=== PATIENT | male | born 1990 | race Caucasian/White ===

== ENCOUNTER 2019-01-08 19:29 | Inpatient (IN) | payer MEDICAID ==
[~2019-01-08] VITALS: Ht 165.1 cm; Wt 68.5 kg
[2019-01-08 19:40] VITALS: BP 110/77
--- NOTE | 2019-01-08 19:40 | NUR ---
TO BED # 06 VIA WHEELCHAIR
--- NOTE | 2019-01-08 19:52 | NUR ---
DR. PHILLIPS BEDSIDE EVALUATING PT
--- NOTE | 2019-01-08 19:54 | NUR ---
PT PRESENTS TO THE ED WITH SUDDEN ONSET OF ABD PAIN. PER PATIENT PAIN STARTED TODAY. PATIENT REPORTS HAVING 7 EPISODES OF EMESIS PRIOR TO COMING TO THE ED. PATIENT DENIES DIARRHEA. BOWEL SOUNDS PRESENT. PATIENT REPORTS HAVING HX OF GASTRITIS. DENIES ANY OTHER MEDICAL HX. VSS WITHIN NORMAL LIMITS AT THIS TIME. BED LOWERED WITH SIDE RAILS UP. FAMILY MEMBER AT BEDSIDE
[2019-01-08] MEDS ORDERED: MORPHINE SULFATE 4 MG/ML SYR IVP ONE (20:05)
[2019-01-08] MEDS ORDERED: ONDANSETRON 4 MG/2 ML VIAL IVP ONE (20:05)
[2019-01-08] MEDS ORDERED: NACL 0.9% 1,000 ML IV ONE (20:05)
[2019-01-08 20:26] LABS: HEMATOCRIT 49.9 % (36-52); HEMOGLOBIN 16.9 g/dL (12.0-18.0); MEAN CORPUSCULAR HEMOGLOBIN 30 pg (27-31); MEAN CORPUSCULAR HGB CONC 34 g/dL (33-37); MEAN CORPUSCULAR VOLUME 89.8 fL (80-94); PLATELET COUNT (AUTO) 237 K/uL (140-450); RED BLOOD CELL COUNT(AUTO) 5.56 MIL/uL (4.20-6.10); RED CELL DISTRIBUTION WIDTH 13.6 % (11.6-13.7); WHITE BLOOD COUNT (AUTO) 15.3 K/uL (4.8-10.8)
--- NOTE | 2019-01-08 20:32 | NUR ---
PT TAKEN TO CT
[2019-01-08 20:36] LABS: ANION GAP 13.1 (8-16); CARBON DIOXIDE 30.6 mmol/L (21-32); CREATININE 1.1 mg/dL (0.7-1.3); POTASSIUM 3.7 mmol/L (3.5-5.1)
[2019-01-08 20:42] LABS: ALBUMIN 5.1 g/dL (3.4-5.0); TOTAL BILIRUBIN 1.2 mg/dL (0.0-1.0)
--- NOTE | 2019-01-08 20:42 | NUR ---
PT RETURNED FROM CT
[2019-01-08 20:55] LABS: LYMPHOCYTES % (MANUAL) 14 % (20-46); MONOCYTES % (MANUAL) 2 % (5-12)
[2019-01-08] MEDS ORDERED: PIPERACILLIN/TAZOBACTAM 4.5 GM in DEXTROSE 5% 100 ML IV ONE (21:25)
[2019-01-08] MEDS ORDERED: PIPERACILLIN/TAZOBACTAM 2.25 GM VIAL IV ONE (21:41)
[2019-01-08] MEDS ORDERED: ONDANSETRON 4 MG/2 ML VIAL IVP PRN (21:45)
[2019-01-08] MEDS ORDERED: ACETAMINOPHEN 325 MG TAB PO PRN (21:45)
[2019-01-08] MEDS ORDERED: NACL 0.9% 1,000 ML IV SCH (22:00)
[2019-01-08 22:26] LABS: MAGNESIUM 2.1 mg/dL (1.8-2.4)
[2019-01-08 22:27] LABS: FREE T4 (FREE THYROXINE) 1.07 ng/dL (0.76-1.46); PHOSPHORUS 3.9 mg/dL (2.5-4.9); THYROID STIMULATING HORMONE 1.33 uIU/mL (0.34-3.74)
--- NOTE | 2019-01-08 22:30 | NUR ---
Patient will be admitted to care of DR MCWILLIAMS . Admited to [facility] . Will go to room 108B. Belongings list completed. Report to DAVID PULIDO .
[2019-01-08 22:42] VITALS: BP 110/64
--- NOTE | 2019-01-08 22:42 | NUR ---
RECIEVED PT. FROM ER PER MICHELLE ,WITH C/O ABDL. PAIN ,AAOX4 ,NOT IN RESP. DISTRESS .IV SITE INTACT AND PATENT , V/S STABLE ,AMBULATORY. TRANSFER TO BED SAFELY , PLAN OF CARE DISCUSSED , VERBALIZE UNDERSTANDING , NPO RE INSTRUCTED AND MAINTAINED , PUT BED ON LOW POASITION ,SIDERAILS UP X2 CALL LIGHT WITHIN REACH , WILL CONTINUE TO MONITOR .
[2019-01-08 23:01] LABS: APPEARANCE,URINE CLEAR (CLEAR); BILIRUBIN,URINE NEGATIVE (NEGATIVE); BLOOD, URINE TRACE-L (NEGATIVE); COLOR,URINE YELLOW (YELLOW); LEUKOCYTE ESTERASE ,URINE NEGATIVE (NEGATIVE); NITRITE, URINE NEGATIVE (NEGATIVE); UGLUCOSE NEGATIVE (NEGATIVE)
[2019-01-08 23:03] LABS: BARBITURATE, URINE NEG. ng/ml (NEG <=200); BENZODIAZEPINE, URINE NEG. ng/mL (NEG <=200); CANNABINOID, URINE NEG. ng/mL (NEG <=50); COCAINE, URINE NEG. ng/mL (NEG <=300); OPIATE, URINE POS. ng/mL (NEG <=2000); PHENCYCLIDINE SCREEN,URINE NEG. ng/mL (NEG <=25)
[2019-01-08] MEDS ORDERED: MORPHINE SULFATE 2 MG/ML SYR IVP PRN (23:25)
[2019-01-08 23:54] LABS: PROTHROMBIN TIME 10.4 secs (10.8-13.4)
[2019-01-09] VITALS: BP 112/65
--- NOTE | 2019-01-09 | NUR ---
VISITED PATIENT , NO FURTHER COMPLAIN AT THIS TIME.CALLLIGHT WITH IN REACH ,V/S STABLE.
[2019-01-09 00:17] LABS: RBC,URINE 0-5 /HPF (0-5); WBC,URINE 0-5 /HPF (0-5)
--- NOTE | 2019-01-09 02:20 | NUR ---
PT. COMPLAINING OF NAUSEA ,BUT NO VOMITING NOTED , ASSESSED PT. CONDITION , ABDOMEN SOFT , NOT IN DISTRESS. WILL CONTINUE TO FOLLOW UP.
--- NOTE | 2019-01-09 03:00 | NUR ---
VISITED PATIENT. PT SLEEPING . CALL LIGHT WITHIN REACH .
[2019-01-09 04:00] VITALS: BP 114/59
--- NOTE | 2019-01-09 04:00 | NUR ---
MADE ROUNDS ,V/S TAKEN , NO FURTHER OF COMPLAIN MADE AT THIS TIME
[2019-01-09] MEDS: DEXT 5% /NACL 0.9% 1,000 ML IV SCH ×3 (04:17→15:04)
--- NOTE | 2019-01-09 04:30 | NUR ---
CONSENT SIGNED BY FOR LAPAROSCOPIC OPEN APPENDECTOMY . MAINTAINED NPO. IVF CHANGED ORDERED, WILL CONTINUE TO MONITOR.
[2019-01-09] MEDS ORDERED: PIPERACILLIN/TAZOBACTAM 3.375 GM in DEXTROSE 5% 50 ML IV SCH (05:00)
--- NOTE | 2019-01-09 06:00 | NUR ---
PRE OP CHECKLIST DONE , MAINTAINED NPO ,SCHEDULED IV MED GIVEN ,WILL CONTINUE TO MONITOR.
[2019-01-09] MEDS ORDERED: PIPERACILLIN/TAZOBACTAM 3.375 GM VIAL IV ONE (06:43)
[2019-01-09] MEDS: BUPIVACAINE-MPF/EPI 0.25% 30 ML VIAL INJ ONE ×2 (07:17→10:12)
--- NOTE | 2019-01-09 07:22 | NUR ---
ENDORSED TO AM SHIFT NURSE FOR FURTHER NURSING CARE AND MGT. V/S STABLE.
--- NOTE | 2019-01-09 07:23 | NUR ---
REPORT RECEIVED FROM LUMBER PILER OPERATOR NURSE AT BEDSIDE FOR CONTINUITY OF CARE. PATIENT AOX4, REPORTING TOLERABLE ABD PAIN AT THIS TIME, DX IS ACUTE APPENDICITIS. PROCEDURE WITH DR. KENDRICK CURRENTLY SCHEDULED AT 0830. PATIENT AWARE AND VERBALIZED UNDERSTANDING ABOUT PLAN OF CARE. RESPIRATIONS EVEN AND UNLABORED ON ROOM AIR, NO COMPLAINTS AT THIS TIME. UPDATED BOARD. IV SITE PATENT, INTACT, INFUSING IVF WELL. SAFETY PRECAUTIONS IN PLACE, CALL LIGHT WITHIN REACH, WILL CONTINUE TO MONITOR PATIENT.
[2019-01-09 07:38] LABS: BASOPHILS % (AUTO) 0.2 % (0.0-2.0); HEMATOCRIT 40.6 % (36-52); HEMOGLOBIN 13.7 g/dL (12.0-18.0); LYMPHOCYTES # (AUTO) 0.7 K/uL (2.0-11.5); LYMPHOCYTES % (AUTO) 5.1 % (20.5-51.1); MEAN CORPUSCULAR HEMOGLOBIN 30 pg (27-31); MEAN CORPUSCULAR HGB CONC 34 g/dL (33-37); MEAN CORPUSCULAR VOLUME 90.3 fL (80-94); MONOCYTES # (AUTO) 0.7 K/uL (0.8-1.0); MONOCYTES % (AUTO) 5.1 % (1.7-9.3); NEUTROPHILS # (AUTO) 12.3 K/uL (1.8-7.7); NEUTROPHILS % (AUTO) 89.6 % (42.2-75.2); PLATELET COUNT (AUTO) 212 K/uL (140-450); RED CELL DISTRIBUTION WIDTH 13.3 % (11.6-13.7); WHITE BLOOD COUNT (AUTO) 13.7 K/uL (4.8-10.8)
[2019-01-09 07:40] LABS: ANION GAP 12.3 (8-16); CARBON DIOXIDE 28.7 mmol/L (21-32); MAGNESIUM 1.8 mg/dL (1.8-2.4); PHOSPHORUS 3.6 mg/dL (2.5-4.9)
--- NOTE | 2019-01-09 07:46 | NUR ---
PATIENT HAS BEEN SCREENED AND CATEGORIZED MODERATE NUTRITION RISK. PATIENT WILL BE SEEN WITHIN 3-5 DAYS OF ADMISSION. 01/11/19-01/13/[address]
[2019-01-09 08:00] VITALS: BP 119/50
--- NOTE | 2019-01-09 08:38 | NUR ---
PATIENT WHEELED OFF FLOOR WITH 2 OR NURSES TO GO TO PROCEDURE WITH DR. KENDRICK. PATIENT IN STABLE CONDITION.
[2019-01-09] MEDS ORDERED: ONDANSETRON 4 MG/2 ML VIAL ONE (08:40)
[2019-01-09] MEDS ORDERED: DEXAMETHASONE 4 MG/ML VIAL ONE (08:40)
[2019-01-09] MEDS ORDERED: KETOROLAC 30 MG/ML VIAL ONE (08:40)
[2019-01-09] MEDS ORDERED: PROPOFOL 200 MG/20 ML VIAL IV ONE (08:40)
[2019-01-09] MEDS ORDERED: ROCURONIUM 50 MG/5 ML VIAL IV ONE (08:40)
[2019-01-09] MEDS ORDERED: SEVOFLURANE 250 ML BTL INH ONE (08:40)
[2019-01-09] MEDS ORDERED: SUCCINYLCHOLINE CHLORIDE 200 MG/10 ML VIAL IVP ONE (08:40)
[2019-01-09] MEDS ORDERED: LACTATED RINGERS 1,000 ML IV SCH (08:46)
[2019-01-09] MEDS ORDERED: MEPERIDINE 50 MG/ML SYR ONE (08:49)
[2019-01-09] MEDS ORDERED: MIDAZOLAM 2 MG/2 ML VIAL ONE (08:49)
[2019-01-09] MEDS ORDERED: fentaNYL 0.05 MG/ML VIAL ONE (08:49)
[2019-01-09] MEDS ORDERED: diphenhydrAMINE 50 MG/ML VIAL IVP PRN (08:50)
[2019-01-09] MEDS ORDERED: MEPERIDINE 25 MG/ML SYR IVP PRN (08:50)
[2019-01-09] MEDS ORDERED: ONDANSETRON 4 MG/2 ML VIAL IVP PRN (08:50)
[2019-01-09] MEDS ORDERED: HYDROmorphone 1 MG/ML AMP IVP PRN (08:50)
[2019-01-09 09:39] LABS: CHOL/HDL RATIO 2.6 (1-4.5)
--- NOTE | 2019-01-09 10:55 | NUR ---
PATIENT WHEELED BACK TO FLOOR BY MODULAR SET CREW MEMBER. PATIENT DROWSY BUT AWAKE. EXPLAINED TO PATIENT ABOUT POST OP PROCEDURE, HE VERBALIZED UNDERSTANDING. VS WNL, WILL CONTINUE TO MONITOR PATIENT.
--- NOTE | 2019-01-09 11:00 | NUR ---
PATIENT POST LAP APPY WITH 2 BANDAGE ON ABDOMEN, 4X4 ON UMBILICUS DRY AND INTACT, WITH MARCELL DRAIN DRAINING SEROSANGUINOUS FLUID. PATIENT DENIES PAIN AT THE MOMENT, SPOUSE CHRIS AT BEDSIDE. NO COMPLAINTS AT THIS TIME, SAFETY PRECAUTION IN PLACE, CALL LIGHT WITHIN REACH, WILL CONTINUE TO MONITOR PATIENT.
[2019-01-09] MEDS: DOCUSATE SODIUM 100 MG GELCAP PO SCH ×2 (11:10→20:03)
[2019-01-09] MEDS: LACTOBACILLUS RHAMNOSUS GG 1 EACH CAP PO SCH (11:11)
--- NOTE | 2019-01-09 11:11 | NUR ---
0900 MEDICATIONS GIVEN. PATIENT TOLERATED IT WELL. SPOUSE CHRIS AT BEDSIDE. NO COMPLAINTS OF PAIN AT THIS TIME. WILL CONTINUE TO MONITOR PATIENT.
[2019-01-09] MEDS: PIPER/TAZO 3.375GM/D5W PREMIX 50 ML IV SCH ×2 (12:37→20:03)
--- NOTE | 2019-01-09 12:39 | NUR ---
ORDERED ANTIBIOTICS IVPB GIVEN. PATIENT TOLERATING IT. PATIENT RESTING IN BED WITH EYES CLOSED, RESPIRATIONS EVEN AND UNLABORED ON ROOM AIR. WILL CONTINUE TO MONITOR PATIENT.
--- NOTE | 2019-01-09 14:05 | NUR ---
PATIENT RESTING IN BED WITH EYES CLOSED, NO SIGN OF DISTRESS NOTED. WILL CONTINUE TO MONITOR PATIENT.
[2019-01-09] MEDS: HYDROcodone/APAP 7.5/325 MG 1 TAB PO PRN ×2 (15:35→22:56)
--- NOTE | 2019-01-09 19:19 | NUR ---
REPORT GIVEN AT BEDSIDE TO HONING MACHINE OPERATOR SEMIAUTOMATIC NURSE AT FOR CONTINUITY OF CARE. PATIENT IN STABLE CONDITION.
--- NOTE | 2019-01-09 19:19 | NUR ---
RECIEVED PT AAOX4 ,WITH BEARABLE POST OP PAIN PT. STATED , NO SIGN OF DISTRESS ON THIS TIME ,, ON NPO EXCEPTS MEDS ,IV SITE INTACT AND PATENT ,WITH SURGICAL DRESSING DRY AND INTACT ,WITH DRAINAGE VAC DRAINING PINKISH TO LIGHT REDDDISG DRAINAGE , NO SIGNS OF ACTIVE BLEEDING AT THIS TIME , WILL CONTINUE TO MONITOR .
[2019-01-09 20:09] VITALS: BP 106/62
--- NOTE | 2019-01-09 22:56 | NUR ---
COMPLAIN OF PAIN , PAIN ASSESSMENT DONE , SURGICAL DRESSING DRY AND INTACT , NARCO P.O GIVEN ORDERED BY MD.WILL CONTINUE TO MONITOR . CALL LIGHT WITHIN REACH..
--- NOTE | 2019-01-09 23:56 | NUR ---
MADE ROUNDS , BEARABLE PAIN PT. STATED. CALL LIGHT WITHIN REACH . NPO EXCEPTS MEDS RE INSTRUCTED TO PT. WILL CONTINUE TO MONITOR
[2019-01-10] VITALS (7 sets, daily range): BP systolic 96–109; BP diastolic 40–60
[2019-01-10] MEDS: DEXT 5% /NACL 0.9% 1,000 ML IV SCH ×2 (01:04→03:52)
--- NOTE | 2019-01-10 02:00 | NUR ---
MADE ROUNDS , PT. SLEEPING.
--- NOTE | 2019-01-10 04:00 | NUR ---
V/S TAKEN - WNL , PT IS NOT IN DISTRESS , WITH BEARBLE PAIN PT. SAID. SURGICAL DRESSING DRY AND INTACT , IVF INFUSING WELL . CALL LIGHT WITH IN REACH ,WILL CONTINUE TO MONITOR.
[2019-01-10] MEDS: PIPER/TAZO 3.375GM/D5W PREMIX 50 ML IV SCH ×3 (04:28→20:13)
--- NOTE | 2019-01-10 06:00 | NUR ---
MADE ROUNDS . PT SLEEPING
--- NOTE | 2019-01-10 07:20 | NUR ---
ENDORSED TO AM SHIFT NURSE FOR CONTINUITY OF CARE .
--- NOTE | 2019-01-10 07:21 | NUR ---
REPORT RECEIVED FROM NUT TAPPER NURSE AT BEDSIDE FOR CONTINUITY OF CARE. PATIENT AOX4, REPORTING TOLERABLE ABD PAIN AT THIS TIME, S/P LAP APPY WITH DR. KENDRICK 01/09/19. PATIENT AWARE AND VERBALIZED UNDERSTANDING ABOUT PLAN OF CARE. RESPIRATIONS EVEN AND UNLABORED ON ROOM AIR, NO COMPLAINTS AT THIS TIME. UPDATED BOARD. IV SITE PATENT, INTACT, INFUSING IVF WELL. SAFETY PRECAUTIONS IN PLACE, CALL LIGHT WITHIN REACH, WILL CONTINUE TO MONITOR PATIENT.
[2019-01-10 07:32] LABS: BASOPHILS % (AUTO) 0.1 % (0.0-2.0); HEMATOCRIT 35.8 % (36-52); HEMOGLOBIN 11.9 g/dL (12.0-18.0); LYMPHOCYTES # (AUTO) 0.9 K/uL (2.0-11.5); MEAN CORPUSCULAR HEMOGLOBIN 30 pg (27-31); MEAN CORPUSCULAR HGB CONC 33 g/dL (33-37); MEAN CORPUSCULAR VOLUME 91.3 fL (80-94); MONOCYTES # (AUTO) 0.7 K/uL (0.8-1.0); NEUTROPHILS # (AUTO) 9.3 K/uL (1.8-7.7); PLATELET COUNT (AUTO) 184 K/uL (140-450); RED BLOOD CELL COUNT(AUTO) 3.92 MIL/uL (4.20-6.10); RED CELL DISTRIBUTION WIDTH 13.5 % (11.6-13.7); WHITE BLOOD COUNT (AUTO) 10.9 K/uL (4.8-10.8)
[2019-01-10 08:05] LABS: ANION GAP 10.8 (8-16); CARBON DIOXIDE 27.2 mmol/L (21-32); CREATININE 0.9 mg/dL (0.7-1.3)
[2019-01-10] MEDS: DOCUSATE SODIUM 100 MG GELCAP PO SCH ×2 (08:15→20:13)
[2019-01-10] MEDS: LACTOBACILLUS RHAMNOSUS GG 1 EACH CAP PO SCH (08:15)
[2019-01-10 08:24] LABS: LYMPHOCYTES % (AUTO) 8.5 % (20.5-51.1); NEUTROPHILS % (AUTO) 85.4 % (42.2-75.2)
--- NOTE | 2019-01-10 09:12 | NUR ---
PT REQUESTING FOR PAIN MEDICATION. BP 104/[address] MCDONALD, HE ORDERED FOR ORTHOSTATIC VS. WILL CARRY OUT ORDERED.
[2019-01-10] MEDS: HYDROcodone/APAP 7.5/325 MG 1 TAB PO PRN ×2 (10:13→17:15)
--- NOTE | 2019-01-10 10:13 | NUR ---
PERFORMED ORTHOSTATIC VS, UPDATED DR. MCDONALD WITH INFORMATION. PER DR. MCDONALD, PRN NORCO CAN BE GIVEN WITH CURRENT BP AND HR. PRN NORCO GIVEN TO PATIENT. HE TOLERATED IT. NO COMPLAINTS AT THIS TIME, WILL CONTINUE TO MONITOR PATIENT.
--- NOTE | 2019-01-10 10:30 | NUR ---
DR. KENDRICK IN TO SEE THE PATIENT. UPDATED HIM ABOUT PATIENT'S STATUS. WILL WAIT FOR HIS ORDERS.
--- NOTE | 2019-01-10 11:20 | NUR ---
PATIENT AMBULATING SLOWLY IN HALLWAY. WILL CONTINUE TO MONITOR PATIENT.
[2019-01-10] MEDS: NACL 0.9% 1,000 ML IV SCH ×2 (11:30→19:15)
--- NOTE | 2019-01-10 13:04 | NUR ---
CHRIS CALLED. UPDATED HER ON PATIENT'S STATUS, SHE VERBALIZED UNDERSTANDING. STATED THAT SHE WILL BE IN TO SEE PATIENT LATER. RELAYED INFORMATION TO HIM. PATIENT RESTING IN BED WITH EYES CLOSED, WILL CONTINUE TO MONITOR PATIENT.
--- NOTE | 2019-01-10 14:45 | NUR ---
PATIENT SLEEPING COMFORTABLY IN BED, NO SIGN OF DISTRESS AT THIS TIME. WILL CONTINUE TO MONITOR PATIENT.
--- NOTE | 2019-01-10 15:15 | NUR ---
PATIENT AMBULATING SLOWLY IN ROOM. STATING PAIN IS BEARABLE AT THIS TIME. NO REQUEST FOR PAIN. WILL CONTINUE TO MONITOR PATIENT.
--- NOTE | 2019-01-10 16:15 | NUR ---
PATIENT RESTING IN BED WITH EYES CLOSED, NO COMPLAINTS AT THIS TIME. WILL CONTINUE TO MONITOR PATIENT.
--- NOTE | 2019-01-10 17:15 | NUR ---
PT C/O ABD PAIN 02/11, DID NOT WANT MORPHINE IVP. REQUESTED FOR P.O NORCO INSTEAD. NORCO PRN GIVEN. PATIENT TOLERATING IT. WILL CONTINUE TO MONITOR PATIENT.
--- NOTE | 2019-01-10 18:25 | NUR ---
PATIENT SITTING UP IN BED EATING DINNER. FRIENDS AT BEDSIDE. NO COMPLAINTS AT THIS TIME. WILL CONTINUE TO MONITOR PATIENT.
--- NOTE | 2019-01-10 19:00 | NUR ---
REPORT GIVEN TO SOIL SORT WORKER NURSE AT BEDSIDE FOR CONTINUITY OF CARE. PATIENT IN STABLE CONDITION.
--- NOTE | 2019-01-10 19:01 | NUR ---
BEDSIDE REPORT RECEIVED FROM DAY SHIFT NURSEADRIAN FOR CONTINUITY OF CARE. PATIENT AOX4, REPORTING TOLERABLE ABD PAIN AT THIS TIME, NO S/S OF SOB OR ANY RESPIRATORY DISTRESS NOTED ON ROOM AIR. POC DISCUSSED, PATIENT VERBALIZED UNDERSTANDING. NO ACUTE DISTRESS NOTED AT THIS TIME. UPDATED BOARD. IV SITE ON LAC 20G, PATENT, INTACT, INFUSING IVF WELL. SAFETY PRECAUTIONS IN PLACE, CALL LIGHT WITHIN REACH, WILL CONTINUE TO MONITOR PATIENT.
--- NOTE | 2019-01-10 20:18 | NUR ---
GIVEN HEPARIN, SEBASTIAN GUTIERREZ ORDERED. PT MORNING. ABD PAIN, 05/14 NOTED BUT PT REFUSED PAIN MEDICATION. EXPLAIN BENEFIT AND RISK 3 TIMES BUT PT STILL REFUSED. PT STATES "I CAN HANDLE IT. I WILL LET YOU KNOW IF I NEED PAIN MEDICATION."
--- NOTE | 2019-01-10 21:05 | NUR ---
PROVIDE VOMITING BAG UPON PT'S REQUEST AND OFFER PRN ZOFRAN BUT PT REFUSED. EXPLAIN BENEFIT AND RISK 3TIMES BUT PT STILL REFUSED. PT STATES "I CAN HANDLE IT"
--- NOTE | 2019-01-10 22:33 | NUR ---
PT C/O N/V AND 05/14 ABD PAIN. GIVEN ZOFRAN AND MORPHINE DRHong ORDERED. PT TOLERATED WELL. WILL CONTINUE TO MONITOR.
[2019-01-11] VITALS: BP 108/64
--- NOTE | 2019-01-11 | NUR ---
VS CHECKED. WITHIN PT'S BASELINE. BP SUPINE 108/64.
[2019-01-11 00:05] VITALS: BP 115/65
--- NOTE | 2019-01-11 00:05 | NUR ---
SITTING BP 115/65 NOTED.
[2019-01-11 00:10] VITALS: BP 103/57
--- NOTE | 2019-01-11 00:10 | NUR ---
STANDING BP 103/57 NOTED.
--- NOTE | 2019-01-11 02:10 | NUR ---
PT SLEEPING IN BED COMFORTABLY. RESP EVEN AND UNLABORED. BED IN LOW POSITION. WILL CONTINUE TO MONITOR.
--- NOTE | 2019-01-11 02:10 | NUR ---
PT IN BED, AWAKE. RESP EVEN AND UNLABORED. DENIED PAIN. WILL CONTINUE TO MONITOR. Addendum: 01/11/19 at 0229 by Gui Lui RN WRONG PATIENT
[2019-01-11] MEDS: PIPER/TAZO 3.375GM/D5W PREMIX 50 ML IV SCH ×2 (04:17→12:41)
--- NOTE | 2019-01-11 04:17 | NUR ---
GIVEN ZOSYN DR. ORDERED. PT TOLERATED WELL. WILL CONTINUE TO MONITOR.
[2019-01-11] MEDS: NACL 0.9% 1,000 ML IV SCH ×2 (05:15→09:32)
--- NOTE | 2019-01-11 06:20 | NUR ---
MARCELL DRAINAGE AMOUNT 120ML. REPORT TO DR. SCHWARTZ IN PERSON AND LEFT MSG TO DR. KENDRICK.
--- NOTE | 2019-01-11 07:28 | NUR ---
ENDORSED PT TO DAY SHIFT NURSEPRAFUL. PT IN STABLE CONDITION.
--- NOTE | 2019-01-11 07:30 | NUR ---
RECEIVED PT FROM RIM FIRE PRIMING TOOL SETTER NURSE, PT IS AWAKE AND LYING ON THE BED WITH SIDE RAILS UP AND CALL LIGHT WITHIN REACH, HAS AN IV LINE ON THE LEFT AC G.20 WITH NS INFUSING AT A RATE OF 100ML/HR, INTACT, MARCELL DRAIN PLACED ON THE RT ABDOMEN WITH 2 SURGICAL INCISIONS NOTED REINFORCED WITH DRESSINGS. PT VERBALIZED A PAIN RATE OF 7/10 BUT NO SIGN OF DISTRESS NOTED. WILL MONITOR PT.
[2019-01-11 07:44] LABS: BASOPHILS % (AUTO) 0.2 % (0.0-2.0); EOSINOPHILS % (AUTO) 0.3 % (0.0-4.0); HEMATOCRIT 39.3 % (36-52); HEMOGLOBIN 13.1 g/dL (12.0-18.0); LYMPHOCYTES # (AUTO) 1.3 K/uL (2.0-11.5); LYMPHOCYTES % (AUTO) 11.9 % (20.5-51.1); MEAN CORPUSCULAR HEMOGLOBIN 30 pg (27-31); MEAN CORPUSCULAR HGB CONC 33 g/dL (33-37); MEAN CORPUSCULAR VOLUME 90.7 fL (80-94); MONOCYTES # (AUTO) 0.9 K/uL (0.8-1.0); MONOCYTES % (AUTO) 7.7 % (1.7-9.3); NEUTROPHILS % (AUTO) 79.9 % (42.2-75.2); PLATELET COUNT (AUTO) 215 K/uL (140-450); RED BLOOD CELL COUNT(AUTO) 4.34 MIL/uL (4.20-6.10); RED CELL DISTRIBUTION WIDTH 13.9 % (11.6-13.7); WHITE BLOOD COUNT (AUTO) 11.2 K/uL (4.8-10.8)
[2019-01-11 07:52] LABS: ANION GAP 11.5 (8-16); CREATININE 0.9 mg/dL (0.7-1.3); POTASSIUM 3.5 mmol/L (3.5-5.1)
[2019-01-11 07:57] LABS: MAGNESIUM 1.7 mg/dL (1.8-2.4)
[2019-01-11 08:00] VITALS: BP 115/67
--- NOTE | 2019-01-11 08:30 | NUR ---
PT WAS SEEN AMBULATING IN THE HALLWAY, WAS ASSISTED BACK TO ROOM AND BED, VITAL SIGNS CHECKED AND BP IS 115/67, PULSE IS 71, O2 SATURATION IS 98% AND TEMPERATURE IS 98.4, WILL MEDICATE AND MONITOR PT.
[2019-01-11] MEDS ORDERED: KETOROLAC 30 MG/ML VIAL IVP PRN (08:50)
[2019-01-11] MEDS: LACTOBACILLUS RHAMNOSUS GG 1 EACH CAP PO SCH (09:18)
[2019-01-11] MEDS: DOCUSATE SODIUM 100 MG GELCAP PO SCH (09:18)
--- NOTE | 2019-01-11 09:18 | NUR ---
PT IS AWAKE AND SEATED ON THE BED, V/S CHECKED AND BP IS 116/61, PULSE IS 76, O2 SATURATION IS 99%, PAIN MEDICATION WAS GIVEN VIA IV PUSH. WILL RE-ASSESS AND MONITOR PT.
--- NOTE | 2019-01-11 12:42 | NUR ---
IV ZOSYN VIA PIGGYBACK WAS GIVEN TO PT NOW.
[2019-01-11] MEDS ORDERED: MAGNESIUM OXIDE 400 MG TAB PO SCH (13:30)
--- NOTE | 2019-01-11 13:59 | NUR ---
PT IS AWAKE AND SEATED ON THE BED WITH ON THE BEDSIDE, WATCHING TV, MAGNESIUM TABLET AND IV WERE GIVEN TO PT NOW. WILL MONITOR PT.
[2019-01-11] MEDS ORDERED: MAG SULF 2000 MG/WATER PREMIX 50 ML IV SCH (14:00)
[2019-01-11] MEDS ORDERED: [UNRECOGNIZED DRUG - CODE] PO (14:42)
[2019-01-11] MEDS ORDERED: CIPR500T4 PO (14:42)
[2019-01-11] MEDS ORDERED: IBUP-1842 PO (14:42)
[2019-01-11] MEDS ORDERED: METR250T2 PO (14:42)
[2019-01-11] MEDS ORDERED: ACET-9529 PO (14:42)
[2019-01-11] MEDS ORDERED: LACT10CA PO (14:42)
[2019-01-11] MEDS ORDERED: LACT1.4C PO (14:42)
[2019-01-11] MEDS ORDERED: DOCU-299 PO (14:42)
[2019-01-11 16:00] VITALS: BP 107/56
--- NOTE | 2019-01-11 17:00 | NUR ---
PT IS AWAKE AND ON THE BEDSIDE, SURGICAL WOUND ASSESSMENT WAS DONE AND PICTURE WAS TAKEN AND ATTACHED TO CHART. PT WAS ADVISED OF FOLLOW UP WITH SURGEON AND VERBALIZED UNDERSTANDING.
--- NOTE | 2019-01-11 17:25 | NUR ---
DISCHARGE PT VIA WHEELCHAIR WITH , TEACHINGS AND MEDICATIONS INSTRUCTIONS GIVEN TO PT AND PT VERBALIZED UNDERSTANDING. IV LINE AND ARM BAND REMOVED, TEACHINGS ON MARCELL BULB DRAIN WAS GIVEN TO PT AND VERBALIZED UNDERSTANDING. PT IS STABLE AT THIS TIME.
== END 2019-01-11 17:25 | disposition home or self-care (01) | DRG 710 ==
LOC: MED 19:29 → MTU 21:46
PROVIDERS: ADMIT General Practice; ATTEND General Practice
PROC: 0D9W4ZZ Drainage of Peritoneum, Percutaneous Endoscopic Approach (ICD-10-PCS; 2019-01-09)
PROC: 0DTJ4ZZ Resection of Appendix, Percutaneous Endoscopic Approach (ICD-10-PCS; principal; 2019-01-09 08:30)
DX: A41.9 Sepsis, unspecified organism (principal); K35.33 Acute appendicitis with perforation, localized peritonitis, and gangrene, with abscess; K59.00 Constipation, unspecified; K57.20 Diverticulitis of large intestine with perforation and abscess without bleeding; E86.0 Dehydration; Z86.19 Personal history of other infectious and parasitic diseases
CPT/HCPCS: 36415; 71045; 80048; 80053; 80305; 81001; 82150; 82374; 83036; 83605; 83690; 83735; 83880; 84100; 84439; 84443; 84484; 85025; 85610; 85730; 87040; 87081; 88304; 96361; 96374; 96375; 99285; J0330; J1100; J1644; J1885; J2175; J2250; J2270; J2405; J2543; J2704; J3010; J3475; J3490; J7030; J7042; J7060; Q0092

== ENCOUNTER 2019-02-19 20:02 | Emergency (ER) | payer MEDICAID ==
[~2019-02-19] VITALS: Ht 167.6 cm; Wt 70.3 kg
[~2019-02-19 20:02] MED LIST: ACET-9529 PO; CIPR500T4 PO; DOCU-299 PO; IBUP-1842 PO; LACT10CA PO; METR250T2 PO; [UNRECOGNIZED DRUG - CODE] PO
[2019-02-19 20:14] VITALS: BP 120/87
--- NOTE | 2019-02-19 20:17 | NUR ---
TO LOBBY A/W BED AMBULATORY
[2019-02-19] MEDS ORDERED: ACETAMINOPHEN 325 MG TAB PO ONE (20:25)
--- NOTE | 2019-02-19 20:59 | NUR ---
PT AMBULATED TO ER BED 12
--- NOTE | 2019-02-19 21:15 | NUR ---
PT IS A 28 Y/O MALE WHO PRESENTS TO THE ED C/O LOWER ABD PAIN. PT STATES THAT HE HAD APPENDIX SURGERY AND STILL C/O PAIN. REPORTS BODYACHES AND CHILLS. PT REPORTS 7/10 ACHING LOWER ABD PAIN THAT DOES NOT RADIATE. PT DENIES CP, SOB, REPORTS NAUSEA/VOMITING. PT AWAKE AND ALERT, RR EVEN/UNLABORED. PT AWAKE AND ALERT, RR EVEN/UNLABORED. PT REPOSITIONED FOR COMFORT, BED IN LOWEST POSITION. ER MD DR. WRIGHT NOTIFIED. WILL CONTINUE TO MONITOR. PMH--APPENDIX SURGERY NKA
[2019-02-19] MEDS ORDERED: MORPHINE SULFATE 4 MG/ML SYR IVP ONE ×2 (21:50→22:50)
[2019-02-19] MEDS ORDERED: NACL 0.9% 1,000 ML IV ONE (21:50)
[2019-02-19] MEDS ORDERED: ONDANSETRON 4 MG/2 ML VIAL IVP ONE (21:50)
--- NOTE | 2019-02-19 22:09 | NUR ---
PATIENT TAKEN TO CT WITH STAN VIA MAURILIORAPRIL.
--- NOTE | 2019-02-19 22:17 | NUR ---
PATIENT RETURN FROM CT.
[2019-02-19 22:18] LABS: BASOPHILS # (AUTO) 0.1 K/uL (0.00-0.22); BASOPHILS % (AUTO) 0.4 % (0.0-2.0); EOSINOPHILS % (AUTO) 0.2 % (0.0-4.0); HEMOGLOBIN 14.7 g/dL (12.0-18.0); LYMPHOCYTES # (AUTO) 1.4 K/uL (2.0-11.5); LYMPHOCYTES % (AUTO) 11.1 % (20.5-51.1); MEAN CORPUSCULAR HEMOGLOBIN 30 pg (27-31); MEAN CORPUSCULAR HGB CONC 34 g/dL (33-37); MEAN CORPUSCULAR VOLUME 88.4 fL (80-94); MONOCYTES # (AUTO) 0.9 K/uL (0.8-1.0); MONOCYTES % (AUTO) 7.1 % (1.7-9.3); NEUTROPHILS # (AUTO) 10.3 K/uL (1.8-7.7); NEUTROPHILS % (AUTO) 81.2 % (42.2-75.2); PLATELET COUNT (AUTO) 249 K/uL (140-450); RED BLOOD CELL COUNT(AUTO) 4.86 MIL/uL (4.20-6.10); WHITE BLOOD COUNT (AUTO) 12.6 K/uL (4.8-10.8)
--- NOTE | 2019-02-19 22:30 | NUR ---
PATIENT RESTING AT THIS TIME. NO SIGNS OF DISTRESS.
[2019-02-19 22:40] LABS: ANION GAP 13.7 (8-16); CARBON DIOXIDE 28.9 mmol/L (21-32); CREATININE 1.1 mg/dL (0.7-1.3); POTASSIUM 3.6 mmol/L (3.5-5.1)
[2019-02-19 22:46] LABS: ALBUMIN 4.2 g/dL (3.4-5.0); TOTAL BILIRUBIN 2.4 mg/dL (0.0-1.0)
[2019-02-19] MEDS ORDERED: CIPROFLOXACIN 250 MG TAB PO ONE (22:55)
[2019-02-19] MEDS ORDERED: metroNIDAZOLE 500 MG TAB PO ONE (22:55)
[2019-02-19 23:33] VITALS: BP 121/77
--- NOTE | 2019-02-19 23:33 | NUR ---
Patient discharged with v/s stable. Written and verbal after care instructions given and explained. Patient alert, oriented and verbalized understanding of instructions. Ambulatory with steady gait. All questions addressed prior to discharge. ID band removed. Patient advised to follow up with PMD. Rx of NORCO 5MG-325MG, CIPRO 500MG AND FLAGYL 500MG given. Patient educated on indication of medication including possible reaction and side effects. Opportunity to ask questions provided and answered.
== END 2019-02-19 23:33 | disposition home or self-care (01) ==
LOC: MED 20:02
DX: K57.92 Diverticulitis of intestine, part unspecified, without perforation or abscess without bleeding (principal); R11.2 Nausea with vomiting, unspecified; Z90.49 Acquired absence of other specified parts of digestive tract; Z79.899 Other long term (current) drug therapy
CPT/HCPCS: 36415; 74176; 80053; 83605; 83690; 85025; 87040; 87804; 96361; 96374; 96375; 96376; 99284; J2270; J2405; J7030

== ENCOUNTER 2020-07-13 19:24 | Inpatient (IN) | payer OTHER, MEDICAID, SELFPAY ==
[~2020-07-13] VITALS: Ht 165.1 cm; Wt 88.5 kg
[~2020-07-13 19:24] MED LIST changes: +METR-520 PO; -METR250T2 PO; +[UNRECOGNIZED DRUG - CODE] PO; -[UNRECOGNIZED DRUG - CODE] PO
[2020-07-13 20:09] VITALS: BP 156/73
--- NOTE | 2020-07-13 20:20 | NUR ---
29 Y/O MALE BIB FOR LOWER ABDOMINAL PAIN AND N/V X 3 DAYS. PAIN IS A 10/10 BURNING SENSATION NON RADIATING. NO BLEEDING IN EMESIS. DENIES ANY DYSURIA. ABDOMEN IS SOFT AND NONTENDER. BOWEL SOUNDS ACTIVE ON FOUR QUADRANTS. A/OX4-GCS 15; GAIT IS STEADY AND SMOOTH. PATIENT HAS NOT TAKEN ANY PAIN MEDS. ALSO STATES, "WHENEVER I COUGH, MY THROAT FEELS LIKE IT IS CLOSING IN ON ME". PMH: DIVERTICULITIS ALLERGIES: NONE NKDA
--- NOTE | 2020-07-13 22:50 | NUR ---
PT W/C TO BED 3.
[2020-07-13] MEDS ORDERED: ONDANSETRON 4 MG/2 ML VIAL IVP ONE (23:00)
[2020-07-13] MEDS ORDERED: NACL 0.9% 2,000 ML IV ONE (23:00)
[2020-07-13] MEDS ORDERED: MORPHINE SULFATE 4 MG/ML SYR IVP ONE (23:00)
--- NOTE | 2020-07-13 23:20 | NUR ---
18 G IV SITE ESTABLISHED TO R AC. SITE WAS PATENT FLUSHED WITH 10 ML OF 0.9% OF NS.
[2020-07-14] MEDS ORDERED: NACL 0.9% 2,000 ML IV ONE ×2
--- NOTE | 2020-07-14 00:07 | NUR ---
PT LAYING IN BED IN NO ACUTE DISTRESS NOTED. BREATHING EVEN AN UNLABORED. CAME IN FOR C/O 02/11 "SHARP & SUDDEN" MID-LOWER ABD PAIN X 3 DAYS. ABDOMEN WAS ROUND SOFT AND NON-TENDER. REPORTS HAVING A APPENDECTOMY IN 2008. DENIES HAVING ANY MEDICAL HISTORY OR HAVING ANY KOWN ALLERGIES.
[2020-07-14 00:29] LABS: BASOPHILS # (AUTO) 0.1 K/uL (0.00-0.22); BASOPHILS % (AUTO) 0.3 % (0.0-2.0); EOSINOPHILS # (AUTO) 0.1 K/uL (0-0.4); EOSINOPHILS % (AUTO) 0.6 % (0.0-4.0); HEMATOCRIT 45.5 % (36-52); HEMOGLOBIN 15.4 g/dL (12.0-18.0); LYMPHOCYTES # (AUTO) 1.2 K/uL (2.0-11.5); MEAN CORPUSCULAR HEMOGLOBIN 30 pg (27-31); MEAN CORPUSCULAR HGB CONC 34 g/dL (33-37); MEAN CORPUSCULAR VOLUME 90.2 fL (80-94); MONOCYTES # (AUTO) 0.9 K/uL (0.8-1.0); MONOCYTES % (AUTO) 6.2 % (1.7-9.3); NEUTROPHILS # (AUTO) 12.9 K/uL (1.8-7.7); PLATELET COUNT (AUTO) 255 K/uL (140-450); RED BLOOD CELL COUNT(AUTO) 5.05 MIL/uL (4.20-6.10); RED CELL DISTRIBUTION WIDTH 12.9 % (11.6-13.7); WHITE BLOOD COUNT (AUTO) 15.2 K/uL (4.8-10.8)
[2020-07-14] MEDS ORDERED: MORPHINE SULFATE 4 MG/ML SYR IVP ONE (00:30)
[2020-07-14] MEDS ORDERED: ONDANSETRON 4 MG/2 ML VIAL IVP ONE (00:30)
[2020-07-14 01:12] LABS: ALBUMIN 4.5 g/dL (3.4-5.0); ANION GAP 10.6 (8-16); CARBON DIOXIDE 31.9 mmol/L (21-32); POTASSIUM 4.5 mmol/L (3.5-5.1); TOTAL BILIRUBIN 1.1 mg/dL (0.0-1.0)
[2020-07-14 01:25] LABS: NEUTROPHILS % (AUTO) 84.9 % (42.2-75.2)
[2020-07-14] MEDS ORDERED: MORPHINE SULFATE 4 MG/ML SYR ONE (01:46)
[2020-07-14] MEDS ORDERED: ONDANSETRON 4 MG/2 ML VIAL ONE (01:47)
--- NOTE | 2020-07-14 02:15 | NUR ---
PT SIGNED CONSENT FOR COMPUTED TOMOGRAPHY OF ABDOMEN WITH PELVIS CONTRAST.
--- NOTE | 2020-07-14 02:36 | NUR ---
PT TAKEN TO CT VIA W/C.
--- NOTE | 2020-07-14 02:47 | NUR ---
PT RETRUNED FROM CT VIA W/C.
--- NOTE | 2020-07-14 02:53 | NUR ---
PT LAYING IN BED IN NO ACUTE DISTRESS NOTED. BREATHING EVEN AND UNLABORED. WILL CONTINUE TO MONITOR. PT AMBULATED TO THE BATHROOM WITH STEADY GAIT.
--- NOTE | 2020-07-14 04:25 | NUR ---
PT LAYING IN BED, IN NO ACUTE DISTRESS NOTED BREATHING EVEN AND UNLABORED WILL CONTINUE TO MONITOR. PT ON PULSE OXIMETRY AND BP MONITORING.
[2020-07-14] MEDS ORDERED: PIPERACILLIN/TAZOBACTAM 3.375 GM in DEXTROSE 5% 50 ML IV ONE (04:55)
[2020-07-14] MEDS ORDERED: PIPERACILLIN/TAZOBACTAM 3.375 GM VIAL IV ONE ×3 (05:17→23:20)
--- NOTE | 2020-07-14 07:00 | NUR ---
MARTIN ANTIGEN SWAB COLLECTED AND SENT TO LAB.
--- NOTE | 2020-07-14 07:01 | NUR ---
PT LAYING IN BED, IN NO ACUTE DISTRESS NOTED BREATHING EVEN AND UNLABORED WILL CONTINUE TO MONITOR. PT ON PULSE OXIMETRY AND BP MONITORING.
--- NOTE | 2020-07-14 07:15 | NUR ---
REPORT GIVEN TO ROLANDO HERNANDEZ FOR CONTINUITY OF CARE.
--- NOTE | 2020-07-14 07:37 | NUR ---
spoke with timothy, spring encaser from [facility], regarding patient information.
--- NOTE | 2020-07-14 07:40 | NUR ---
as per timothy, pillowcase cleaner from [facility], pt likely to be transferred. waiting on covid swab result before decision will be made.
--- NOTE | 2020-07-14 10:35 | NUR ---
ENDORSED PT TO DAVID DOW. ALL CARE TRANSFERRED AT THIS TIME.
--- NOTE | 2020-07-14 10:35 | NUR ---
PT COMPLAINING OF 8/10 PAIN, REQUESTING MEDICATIONS. DAVID DOW MADE AWARE.
--- NOTE | 2020-07-14 12:45 | NUR ---
ERMD MADE AWARE OF PTS 9/10 MID LOWER ABD PAIN DESCRIBED AND POKING PULLING PAIN, AND PTS REPORTS OF NAUSEA.
[2020-07-14] MEDS ORDERED: MORPHINE SULFATE 4 MG/ML SYR IVP SCH (13:00)
[2020-07-14] MEDS ORDERED: ONDANSETRON 4 MG/2 ML VIAL IVP SCH (13:00)
[2020-07-14] MEDS ORDERED: ACETAMINOPHEN 325 MG TAB PO PRN ×2 (13:20→17:15)
[2020-07-14] MEDS ORDERED: DOCUSATE SODIUM 100 MG GELCAP PO PRN ×2 (13:20→17:15)
[2020-07-14] MEDS ORDERED: HYDROcodone/APAP 7.5/325 MG 1 TAB PO PRN (13:20)
[2020-07-14] MEDS ORDERED: guaiFENesin DM 200/20 MG-10 ML 10 ML UDC PO PRN (13:20)
[2020-07-14] MEDS ORDERED: POTASSIUM CHLORIDE 10 MEQ TABER PO PRN (13:20)
[2020-07-14] MEDS ORDERED: ZOLPIDEM 5 MG TAB PO PRN (13:20)
[2020-07-14] MEDS: DEXT 5% /NACL 0.9% 1,000 ML IV SCH ×2 (13:51→23:24)
[2020-07-14] MEDS: PIPERACILLIN/TAZOBACTAM 3.375 GM in DEXTROSE 5% 50 ML IV SCH ×2 (13:51→23:24)
[2020-07-14] MEDS ORDERED: KETOROLAC 30 MG/ML VIAL IM SCH (14:00)
--- NOTE | 2020-07-14 14:45 | NUR ---
PT RESTING IN BED. EQUAL CHEST RISE AND FALL. ALL PT NEEDS MET AT THIS TIME. BED LOCKED AND IN LOWEST POSITION. SIDE RAILS X2.
[2020-07-14 15:20] LABS: PROTHROMBIN TIME 12.7 secs (10.8-13.4)
[2020-07-14 15:40] LABS: CHOL/HDL RATIO 4.4 (1-4.5); FREE T4 (FREE THYROXINE) 1.13 ng/dL (0.76-1.46); MAGNESIUM 1.9 mg/dL (1.8-2.4); PHOSPHORUS 3.9 mg/dL (2.5-4.9); THYROID STIMULATING HORMONE 1.79 uIU/mL (0.34-3.74)
[2020-07-14 16:31] LABS: APPEARANCE,URINE CLEAR (CLEAR); BILIRUBIN,URINE NEGATIVE (NEGATIVE); BLOOD, URINE NEGATIVE (NEGATIVE); COLOR,URINE DARK YELLOW (YELLOW); LEUKOCYTE ESTERASE ,URINE NEGATIVE (NEGATIVE); NITRITE, URINE NEGATIVE (NEGATIVE); UGLUCOSE NEGATIVE (NEGATIVE)
[2020-07-14 16:43] LABS: BARBITURATE, URINE NEGATIVE ng/ml (NEG <=200); BENZODIAZEPINE, URINE NEGATIVE ng/mL (NEG <=200); CANNABINOID, URINE NEGATIVE ng/mL (NEG <=50); COCAINE, URINE NEGATIVE ng/mL (NEG <=300); OPIATE, URINE NEGATIVE ng/mL (NEG <=2000); PHENCYCLIDINE SCREEN,URINE NEGATIVE ng/mL (NEG <=25)
--- NOTE | 2020-07-14 16:45 | NUR ---
PT RESTING IN BED. EQUAL CHEST RISE AND FALL. ALL PT NEEDS MET AT THIS TIME. BED LOCKED AND IN LOWEST POSITION. SIDE RAILS X2.
[2020-07-14] MEDS ORDERED: ONDANSETRON 4 MG/2 ML VIAL IM/IVP PRN (17:15)
[2020-07-14] MEDS: NACL 0.9% 1,000 ML IV SCH (17:15)
--- NOTE | 2020-07-14 17:30 | NUR ---
PT STATES 6/10 MID LOWER ABDOMEN PAIN AT THIS TIME. STATED HE WOULD LIKE PAIN CONTROL. PRN ORDER GIVEN
[2020-07-14] MEDS: HYDROcodone/APAP 7.5/325 MG 1 TAB PO PRN (17:47)
--- NOTE | 2020-07-14 19:20 | NUR ---
REPORT GIVEN TO DAVID DOMÍNGUEZ. TRANSFER OF CARE AT THIS TIME.
--- NOTE | 2020-07-14 19:21 | NUR ---
RECEIVED REPORT FROM DAVID DOW AND [facility].
--- NOTE | 2020-07-14 20:25 | NUR ---
PT C/O LEFT EYE BURNING. PT STATED THAT IT JUST STARTED ON ITS OWN. GAVE PT A WET COLD WASHCLOTH. WILL CONTINUE TO MONITOR.
[2020-07-14] MEDS: ONDANSETRON 4 MG/2 ML VIAL IM/IVP PRN (20:57)
--- NOTE | 2020-07-14 21:20 | NUR ---
RECEIVED PATIENT REPORT FROM ER NURSE. PATIENT IS AOX4. LUNGS SOUNDS ARE CLEAR. RESPIRATIONS EVEN AND UNLABORED ON ROOM AIR. S1 AND S2 HEARD. PULSE IS EQUAL BILATERAL ON BOTH UPPER AND LOWER EXTREMITIES. C/C OF ABDOMINAL PAIN. ABDOMEN SOFT AND FLAT. NO DISTENTION NOTED. BOWEL SOUNDS ACTIVE IN ALL FOUR QUADRANTS. LBM WAS ON 07/14/20. IV 22G ON RAC. IV IS PATENT AND INTACT. PLAN OF CARE WAS DISCUSSED. ALL SAFETY PRECAUTIONS IN PLACE. BED IN LOW POSITION AND CALL LIGHT WITHIN REACH. WILL CONTINUE TO MONITOR. Addendum: 07/15/20 at 0219 by Guanako Singleton RN RN PATIENT IS NPO EXCEPT MEDS
--- NOTE | 2020-07-14 21:31 | NUR ---
Patient will be admitted to care of DR COMBS. Admited to [facility]. Will go to room 125B. Belongings list completed. Report to DAVID CARDENAS.
--- NOTE | 2020-07-14 23:00 | NUR ---
CHECKED ON PATIENT. PATIENT IS ASLEEP. RESPIRATIONS ARE EVEN AND UNLABORED. NO S/S OF RESPIRATORY DISTRESS NOTED. WILL CONTINUE TO MONITOR.
[2020-07-15] VITALS: BP 102/55
--- NOTE | 2020-07-15 | NUR ---
PT TRANSFERRED TO ROOM 107A. PT DENIES ANY PAIN OR DISCOMFORT. NO REQUESTS MADE. WILL CONTINUE TO MONITOR. Addendum: 07/16/20 at 0155 by Leonard Randle RN WRONG TIME. SHOULD BE 2200
--- NOTE | 2020-07-15 01:00 | NUR ---
CHECKED ON PATIENT. PATIENT IS ASLEEP. RESPIRATIONS EVEN AND UNLABORED. NO DISTRESS IS NOTED. WILL CONTINUE TO MONITOR
--- NOTE | 2020-07-15 03:00 | NUR ---
CHECKED ON PATIENT. PATIENT IS ASLEEP WITH EVEN AND UNLABORED RESPIRATIONS. NO S/S OF RESPIRATORY DISTRESS NOTED. WILL CONTINUE TO MONITOR.
[2020-07-15] MEDS: DEXT 5% /NACL 0.9% 1,000 ML IV SCH ×3 (03:55→19:14)
[2020-07-15 04:00] VITALS: BP 102/46
[2020-07-15] MEDS ORDERED: PIPERACILLIN/TAZOBACTAM 3.375 GM VIAL IV ONE ×2 (04:36→20:11)
--- NOTE | 2020-07-15 05:00 | NUR ---
PATIENT NEEDED ASSISTANCE TO THE BATHROOM. DENIES PAIN. NO DISTRESS NOTED. WILL CONTINUE TO MONITOR.
[2020-07-15] MEDS: PIPERACILLIN/TAZOBACTAM 3.375 GM in DEXTROSE 5% 50 ML IV SCH ×3 (05:23→20:19)
[2020-07-15 07:07] LABS: BASOPHILS % (AUTO) 0.3 % (0.0-2.0); EOSINOPHILS # (AUTO) 0.1 K/uL (0-0.4); EOSINOPHILS % (AUTO) 1.8 % (0.0-4.0); HEMATOCRIT 41.2 % (36-52); LYMPHOCYTES # (AUTO) 1.4 K/uL (2.0-11.5); LYMPHOCYTES % (AUTO) 18.9 % (20.5-51.1); MEAN CORPUSCULAR HEMOGLOBIN 31 pg (27-31); MEAN CORPUSCULAR HGB CONC 34 g/dL (33-37); MEAN CORPUSCULAR VOLUME 90.7 fL (80-94); MONOCYTES # (AUTO) 0.9 K/uL (0.8-1.0); MONOCYTES % (AUTO) 12.4 % (1.7-9.3); NEUTROPHILS # (AUTO) 4.9 K/uL (1.8-7.7); NEUTROPHILS % (AUTO) 66.6 % (42.2-75.2); PLATELET COUNT (AUTO) 219 K/uL (140-450); RED BLOOD CELL COUNT(AUTO) 4.54 MIL/uL (4.20-6.10); WHITE BLOOD COUNT (AUTO) 7.4 K/uL (4.8-10.8)
--- NOTE | 2020-07-15 07:26 | NUR ---
ENDORSED TO AM SHIFT NURSE FOR CONTINUITY OF CARE. PT IS STABLE.
--- NOTE | 2020-07-15 07:31 | NUR ---
RECEIVED REPORT FROM NIGHTSHIFT NURSE. PT RESTING IN BED. ABLE TO MAKE NEEDS KNOWN. RESPIRATIONS EVEN AND UNLABORED WITH NO SOB OR RESPIRATORY DISTRESS. SKIN WARM AND DRY TO TOUCH. IV SITE IN RAC 22G IS CLEAN, DRY, AND INTACT. SAFETY MEASURES IN PLACE. WILL CONTINUE TO MONITOR
[2020-07-15 07:41] LABS: ANION GAP 9.8 (8-16); CARBON DIOXIDE 30.9 mmol/L (21-32); POTASSIUM 3.7 mmol/L (3.5-5.1)
[2020-07-15 08:00] VITALS: BP 100/74
[2020-07-15] MEDS: PANTOPRAZOLE 40 MG INJ VIAL IVP SCH (08:34)
[2020-07-15] MEDS: ONDANSETRON 4 MG/2 ML VIAL IM/IVP PRN ×2 (08:41→20:26)
--- NOTE | 2020-07-15 08:48 | NUR ---
ADMINISTERED SCHED MED PRESCRIBED PER MD ORDER. PT TOLERATED WELL. MEDICATION EDUCATION EDUCATION PERFORMED. PT VERBALIZED UNDERSTANDING. SAFETY MEASURES IN PLACE. WILL CONTINUE TO MONITOR
--- NOTE | 2020-07-15 08:48 | NUR ---
PATIENT HAS BEEN SCREENED AND CATEGORIZED MODERATE NUTRITION RISK. PATIENT WILL BE SEEN WITHIN 3-5 DAYS OF ADMISSION. 07/17/20 07/19/[address]
[2020-07-15] MEDS: NACL 0.9% 1,000 ML IV SCH (10:13)
--- NOTE | 2020-07-15 11:47 | NUR ---
PT RESTING IN BED. ABLE TO MAKE NEEDS KNOWN. RESPIRATIONS EVEN AND UNLABORED WITH NO SOB OR RESPIRATORY DISTRESS. SKIN WARM AND DRY TO TOUCH. SAFETY MEASURES IN PLACE. WILL CONTINUE TO MONITOR
--- NOTE | 2020-07-15 11:47 | NUR ---
ADMINISTERED SCHED MED PRESCRIBED PER MD ORDER. PT TOLERATED WELL. MEDICATION EDUCATION EDUCATION PERFORMED. PT VERBALIZED UNDERSTANDING. SAFETY MEASURES IN PLACE. WILL CONTINUE TO MONITOR
--- NOTE | 2020-07-15 12:14 | NUR ---
SOCIAL WORK NOTE: Patient's Orientation Unable To Assess Information Provided By ANUPAMA CH - SIGNIFICANT OTHER Comments SW WAS UNABLE TO MEET PATIENT AT BEDSIDE DUE TO MEDICAL CONDITION. SW COMPLETED ASSESSMENT WITH PATIENT'S SIGNIFICANT OTHER. Thermal Cutting Machine Operator, Realtionship and Phone Number ANUPAMA CH SIGNIFICANT OTHER [phone] Healthcare Power of Inspector Optical Instrument No Does Patient Have a POLST No Identifying Problems No Social Work Triggers Is A Social Work Consult Needed No Mandate Report Filed No Explanation Of Identifying Problems PATIENT IS A 29-YEAR-OLD MALE ADMITTED FOR DIVERTICULITIS. PATIENT HAS PMHX OF APPENDECTOMY. Admitted From Home Pre-Admission Level Of Functioning Status Independent/Ambulatory Prior Resources/Services Used In Last 12 Months No Prior Resources Used Prior DME No Prior DME Used Dialysis Comments N/A Living Situation Lives With Family House Patient Had Caregiver No Home Support No Caregiver Issues Financial Issues No Known Financial Issue Factors/Needs No D/C Needs Identified Explanation And Or Other Factors Affecting/Possible DC Needs PATIENT'S SIGNIFICANT OTHER STATED SHE WOULD PROVIDE TRANSPORTATION HOME. Pt/Rep Participated In Discharge Plan Yes Patient/Family Agress With Discharge Plan Yes Discharge Plan Comments TENTATIVE DISCHARGE PLAN IS FOR PATIENT TO RETURN HOME. DC Plan Status Initiated
--- NOTE | 2020-07-15 12:36 | NUR ---
DISCHARGE PLANNING: JASON GARZA OF [facility] [phone], UPDATED OF THE PATIENT'S CONDITION. SHE STATED TO UPDATE HER ONCE THERE IS A SURGICAL CONSULT, SO THEY CAN PRIORITIZE THIS PATIENT. SHE ALSO REQUESTED TO SEND CLINICALS. RECEIVED AN UPDATED FACE SHEET FROM [email or web address], SHOWING THAT PRIMARY INSURANCE IS [facility] AND SECONDARY [facility] WITH ALLIED PHYSICIAN [facility]. JASON GARZA OF [facility] MADE AWARE. SHE REQUESTED TO FAX THEM UPDATED FACE SHEET. Addendum: 07/15/20 at 1357 by Stormy Martinez CM CLINICALS AND UPDATED FACE SHEET SENT TO ALLIED PHYSICIAN
--- NOTE | 2020-07-15 13:30 | NUR ---
ADMINISTERED SCHED MED PRESCRIBED PER MD ORDER. PT TOLERATED WELL. MEDICATION EDUCATION EDUCATION PERFORMED. PT VERBALIZED UNDERSTANDING. SAFETY MEASURES IN PLACE. WILL CONTINUE TO MONITOR
[2020-07-15] MEDS: HYDROcodone/APAP 7.5/325 MG 1 TAB PO PRN (14:02)
--- NOTE | 2020-07-15 14:02 | NUR ---
PT COMPLAINED OF MODERATE PAIN. PRN NORCO ADMINISTERED PRESCRIBED PER MD ORDER. PT TOLERATED WELL. MEDICATION EDUCATION PERFORMED. PT VERBALIZED UNDERSTANDING. SAFETY MEASURES IN PLACE. WILL CONTINUE TO MONITOR
--- NOTE | 2020-07-15 15:45 | NUR ---
FAMILY BROUGHT CLOTHING FOR PATIENT AND WAS GIVEN TO PATIENT. SAFETY MEASURES IN PLACE. WILL CONTINUE TO MONITOR
[2020-07-15 16:00] VITALS: BP 110/67
--- NOTE | 2020-07-15 19:30 | NUR ---
ENDORSED TO NIGHTSHIFT NURSE FOR CONTINUITY OF CARE. PT IS STABLE
--- NOTE | 2020-07-15 19:31 | NUR ---
RECEIVED REPORT FROM DAY SHIFT NURSE. PT IN BED RESTING. PT AAOX4, AMBULATORY, ABLE TO MAKE NEEDS KNOWN. RESPIRATIONS EVEN AND UNLABORED TO ROOM AIR. LUNG SOUNDS CLEAR. ABDOMEN IS SOFT AND NON-TENDER, ACTIVE BOWEL SOUNDS NOTED. SKIN IS WARM, DRY, AND INTACT. PT WITH IV ACCESS ON RIGHT AC G 22 PATENT AND INTACT, IVF INFUSING WELL. PT DENIES ANY PAIN OR DISCOMFORT AT THIS TIME. NO REQUESTS MADE. PT KEPT COMFORTABLE. SAFETY MEASURES IN PLACE. CALL LIGHT WITHIN REACH. WILL CONTINUE TO MONITOR.
--- NOTE | 2020-07-15 20:26 | NUR ---
VS STABLE. SCHEDULED MEDS GIVEN ORDERED. PT FEELING NAUSEATED. PRN ZOFRAN GIVEN ORDERED. SAFETY MEASURES IN PLACE. CALL LIGHT WITHIN REACH. WILL CONTINUE TO MONITOR.
--- NOTE | 2020-07-15 22:00 | NUR ---
PT TRANSFERRED TO ROOM 107A. PT DENIES ANY PAIN OR DISCOMFORT. NO REQUESTS MADE. WILL CONTINUE TO MONITOR.
--- NOTE | 2020-07-16 00:04 | NUR ---
ROUNDS MADE. PT IN BED WATCHING TV. PT DENIES ANY PAIN OR DISCOMFORT AT THIS TIME. PT NOT IN DISTRESS. NO REQUESTS MADE. PT KEPT COMFORTABLE. SAFETY MEASURES IN PLACE. CALL LIGHT WITHIN REACH. WILL CONTINUE TO MONITOR.
--- NOTE | 2020-07-16 01:56 | NUR ---
IV LEAKING. IV PULLED OUT, CANNULA INTACT. NEW IV ACCESS INSERTED ON LEFT AC G20, PATENT AND INTACT. IVF INFUSING WELL. WILL CONTINUE TO MONITOR.
[2020-07-16] MEDS: DEXT 5% /NACL 0.9% 1,000 ML IV SCH ×2 (02:25→08:25)
[2020-07-16] MEDS: NACL 0.9% 1,000 ML IV SCH (02:35)
[2020-07-16 04:00] VITALS: BP_SYST 92; BP_DIAS 39; BP_DIAS 54
--- NOTE | 2020-07-16 04:01 | NUR ---
VS STABLE. PT IN BED RESTING. DENIES ANY PAIN OR DISCOMFORT. PT KEPT COMFORTABLE. NO REQUESTS MADE. SAFETY MEASURES IN PLACE. CALL LIGHT WITHIN REACH. WILL CONTINUE TO MONITOR.
[2020-07-16] MEDS: PIPERACILLIN/TAZOBACTAM 3.375 GM in DEXTROSE 5% 50 ML IV SCH ×2 (05:33→12:26)
[2020-07-16 06:52] LABS: ANION GAP 7.8 (8-16); CARBON DIOXIDE 29.6 mmol/L (21-32); POTASSIUM 3.4 mmol/L (3.5-5.1)
[2020-07-16 07:09] LABS: BASOPHILS % (AUTO) 0.4 % (0.0-2.0); EOSINOPHILS # (AUTO) 0.2 K/uL (0-0.4); EOSINOPHILS % (AUTO) 2.1 % (0.0-4.0); HEMOGLOBIN 13.1 g/dL (12.0-18.0); LYMPHOCYTES # (AUTO) 1.7 K/uL (2.0-11.5); LYMPHOCYTES % (AUTO) 23.1 % (20.5-51.1); MEAN CORPUSCULAR HEMOGLOBIN 31 pg (27-31); MEAN CORPUSCULAR HGB CONC 35 g/dL (33-37); MEAN CORPUSCULAR VOLUME 89.7 fL (80-94); MONOCYTES # (AUTO) 0.7 K/uL (0.8-1.0); MONOCYTES % (AUTO) 9.2 % (1.7-9.3); NEUTROPHILS # (AUTO) 4.7 K/uL (1.8-7.7); NEUTROPHILS % (AUTO) 65.2 % (42.2-75.2); PLATELET COUNT (AUTO) 216 K/uL (140-450); RED BLOOD CELL COUNT(AUTO) 4.24 MIL/uL (4.20-6.10); RED CELL DISTRIBUTION WIDTH 12.7 % (11.6-13.7); WHITE BLOOD COUNT (AUTO) 7.2 K/uL (4.8-10.8)
--- NOTE | 2020-07-16 07:29 | NUR ---
ENDORSED TO DAY SHIFT NURSE FOR CONTINUITY OF CARE
[2020-07-16 08:00] VITALS: BP 107/51
[2020-07-16 08:14] LABS: T4 (THYROXINE) 6.5 ug/dL (4.5-12.0)
[2020-07-16] MEDS: HYDROcodone/APAP 7.5/325 MG 1 TAB PO PRN (08:24)
[2020-07-16] MEDS: PANTOPRAZOLE 40 MG INJ VIAL IVP SCH (08:25)
[2020-07-16] MEDS ORDERED: LEVO750T51 PO (09:19)
[2020-07-16] MEDS ORDERED: OMEP20TC12 PO (09:19)
[2020-07-16] MEDS ORDERED: METR-520 PO (09:19)
--- NOTE | 2020-07-16 14:00 | NUR ---
DISCHARGE INSTRUCTIONS AND EDUCATION GIVEN. PATIENT VERBALIZED UNDERSTANDING AND SIGNED PAPERWORK. HE VERBALIZED UNDERSTANDING ABOUT FOLLOW UP WITH PCP, TAKING PRESCRIPTIONS DESCRIBED, AND CHANGE IN DIET. IV REMOVED, IV CANNULA INTACT, MINIMAL BLEEDING NOTED. ID BANDS CUT. PATIENT WILL NOW CHANGE INTO HIS OWN CLOTHING TO GET READY TO BE DISCHARGED HOME.
--- NOTE | 2020-07-16 14:20 | NUR ---
PATIENT WHEELED OFF FLOOR TO BE DISCHARGED HOME. PATIENT TOOK ALL HIS BELONGINGS. PATIENT IN STABLE CONDITION.
== END 2020-07-16 15:21 | disposition home or self-care (01) | DRG 872 ==
LOC: MED 19:24 → MTU 07-14 17:12 → MMU 07-14 19:35 → MTU 07-14 21:20 → MMU 07-15 08:48 → MTU 07-15 21:40
PROVIDERS: ADMIT Family Medicine; ATTEND Family Medicine
DX: A41.9 Sepsis, unspecified organism (principal); K57.92 Diverticulitis of intestine, part unspecified, without perforation or abscess without bleeding; K21.9 Gastro-esophageal reflux disease without esophagitis; Z20.828 Contact with and (suspected) exposure to other viral communicable diseases
CPT/HCPCS: 36415; 71045; 80048; 80053; 80305; 81003; 82150; 83036; 83605; 83690; 83735; 83880; 84100; 84436; 84439; 84443; 84479; 84484; 85025; 85610; 85730; 87040; 87081; 96365; 96375; 96376; 99285; C9113; J1885; J2270; J2405; J2543; J7030; J7060; Q9967

== ENCOUNTER 2021-04-22 11:46 | Emergency (ER) | payer MEDICAID, OTHER, SELFPAY ==
[~2021-04-22] VITALS: Ht 165.1 cm; Wt 86.2 kg
[~2021-04-22 11:46] MED LIST changes: -ACET-9529 PO; -CIPR500T4 PO; -DOCU-299 PO; -IBUP-1842 PO; -LACT10CA PO; +LEVO750T51 PO; +OMEP-278 PO; -[UNRECOGNIZED DRUG - CODE] PO
[2021-04-22 12:03] VITALS: BP 100/75
[2021-04-22 12:08] VITALS: BP 100/75
--- NOTE | 2021-04-22 12:09 | NUR ---
Pt ambulated to bed 08.
--- NOTE | 2021-04-22 12:10 | NUR ---
PATIENT AMBULATED TO BATHROOM FOR URINE SAMPLE.
--- NOTE | 2021-04-22 12:12 | NUR ---
30 YO MALE BIBS WITH C/O / BERTHA LQ ABDOMINAL PAIN WITH N/V X 1 WEEK. PATIENT STATES HE HAD DIARRHEA AT THE BEGINNING OF THE WEEK BUT NO LONGER PRESENT. DENIES BLOOD IN VOMIT/STOOL. ABDOMEN APPEARS DISTENDED, TENDER TO TOUCH. BS X4 ACTIVE. A&OX4, RR EVEN AND UNLABORED. PMH: DIVERTICULITIS SX: APPENDIX REMOVED NKDA
[2021-04-22] MEDS ORDERED: KETOROLAC 30 MG/ML VIAL IVP ONE (12:15)
[2021-04-22] MEDS ORDERED: ONDANSETRON 4 MG/2 ML VIAL IVP ONE (12:15)
[2021-04-22] MEDS ORDERED: NACL 0.9% 1,000 ML IV SCH (12:15)
--- NOTE | 2021-04-22 12:24 | NUR ---
PATIENT TAKEN TO CT VIA W/C.
--- NOTE | 2021-04-22 12:36 | NUR ---
PATIENT BACK FROM CT VIA W/C.
--- NOTE | 2021-04-22 12:40 | NUR ---
20G IV TO R AC ESTABLISHED, MEDS GIVEN PER MD ORDER.
--- NOTE | 2021-04-22 13:18 | NUR ---
DR HAM AT BEDSIDE EVALUATING PT
[2021-04-22 13:21] LABS: ANION GAP 11.3 (8-16); CARBON DIOXIDE 29.4 mmol/L (21-32); POTASSIUM 3.7 mmol/L (3.5-5.1); TOTAL BILIRUBIN 1.4 mg/dL (0.0-1.0)
[2021-04-22 13:36] LABS: BASOPHILS % (AUTO) 0.2 % (0.0-2.0); EOSINOPHILS % (AUTO) 0.3 % (0.0-4.0); HEMOGLOBIN 14.3 g/dL (12.0-18.0); LYMPHOCYTES # (AUTO) 0.9 K/uL (2.0-11.5); LYMPHOCYTES % (AUTO) 6.6 % (20.5-51.1); MEAN CORPUSCULAR HEMOGLOBIN 31 pg (27-31); MEAN CORPUSCULAR HGB CONC 34 g/dL (33-37); MEAN CORPUSCULAR VOLUME 90.5 fL (80-94); MONOCYTES # (AUTO) 0.9 K/uL (0.8-1.0); MONOCYTES % (AUTO) 6.5 % (1.7-9.3); NEUTROPHILS # (AUTO) 12.4 K/uL (1.8-7.7); NEUTROPHILS % (AUTO) 86.4 % (42.2-75.2); PLATELET COUNT (AUTO) 241 K/uL (140-450); RED BLOOD CELL COUNT(AUTO) 4.64 MIL/uL (4.20-6.10); WHITE BLOOD COUNT (AUTO) 14.4 K/uL (4.8-10.8)
[2021-04-22] MEDS ORDERED: METR500T1 PO (13:55)
[2021-04-22] MEDS ORDERED: IBUP-2213 PO (13:55)
[2021-04-22] MEDS ORDERED: CIPR500T4 PO (13:55)
[2021-04-22] MEDS ORDERED: ONDA8TAB87 PO (13:55)
--- NOTE | 2021-04-22 14:10 | NUR ---
Patient discharged with v/s stable. Written and verbal after care instructions given and explained. Patient alert, oriented and verbalized understanding of instructions. Ambulatory with steady gait. All questions addressed prior to discharge. ID band removed. Patient advised to follow up with PMD. Rx of CIPRO, FLAGYL CHANGED TO AUGMENTIN PER PT REQUEST, IBUPROFEN, AND ZOFRAN given. Patient educated on indication of medication including possible reaction and side effects. Opportunity to ask questions provided and answered.
[2021-04-22] MEDS ORDERED: AMOX-999 PO (14:12)
== END 2021-04-22 14:10 | disposition home or self-care (01) ==
LOC: MED 11:46
DX: K57.92 Diverticulitis of intestine, part unspecified, without perforation or abscess without bleeding (principal); R11.2 Nausea with vomiting, unspecified; Z90.49 Acquired absence of other specified parts of digestive tract; Z79.899 Other long term (current) drug therapy
CPT/HCPCS: 36415; 74176; 80053; 81002; 83690; 85025; 96361; 96374; 96375; 99284; J1885; J2405; J7030

== ENCOUNTER 2021-09-26 20:59 | Emergency (ER) | payer MEDICAID ==
[~2021-09-26] VITALS: Ht 165.1 cm; Wt 81.6 kg
[~2021-09-26 20:59] MED LIST changes: +AMOX-999 PO; +CIPR500T4 PO; +IBUP-2213 PO; -LEVO750T51 PO; -METR-520 PO; -OMEP-278 PO; +ONDA8TAB87 PO
[2021-09-26 21:15] VITALS: BP 125/67
--- NOTE | 2021-09-26 21:15 | NUR ---
to bed ambulatory
--- NOTE | 2021-09-26 21:16 | NUR ---
Patient BIB by family from home. C/O abdominal pain, vomitting x 1 week. Patient reported, had vomiting and abdominal pain for a week, and neck pain, nose bleeding x 2 days. A/O,X4, nausea, no vomiting, abdominal pain, pain rate 8/10.
--- NOTE | 2021-09-26 22:14 | NUR ---
Dr. Irwin at bedside to exam patient.
[2021-09-26] MEDS: ONDANSETRON 4 MG ODT PO ONE (22:23)
--- NOTE | 2021-09-26 23:27 | NUR ---
Blood for labwork drawn from left arm per public health advisor. Patient tolerated well.
[2021-09-26 23:34] LABS: APPEARANCE,URINE CLEAR (CLEAR); BILIRUBIN,URINE NEGATIVE (NEGATIVE); BLOOD, URINE 1+ (NEGATIVE); COLOR,URINE YELLOW (YELLOW); LEUKOCYTE ESTERASE ,URINE NEGATIVE (NEGATIVE); NITRITE, URINE NEGATIVE (NEGATIVE); UGLUCOSE NEGATIVE (NEGATIVE)
[2021-09-26 23:34] LABS: BASOPHILS % (AUTO) 0.2 % (0.0-2.0); EOSINOPHILS # (AUTO) 0.2 K/uL (0-0.4); EOSINOPHILS % (AUTO) 2.2 % (0.0-4.0); HEMATOCRIT 39.3 % (36-52); HEMOGLOBIN 13.7 g/dL (12.0-18.0); LYMPHOCYTES # (AUTO) 1.4 K/uL (2.0-11.5); LYMPHOCYTES % (AUTO) 15.1 % (20.5-51.1); MEAN CORPUSCULAR HEMOGLOBIN 31 pg (27-31); MEAN CORPUSCULAR HGB CONC 35 g/dL (33-37); MEAN CORPUSCULAR VOLUME 88.6 fL (80-94); MONOCYTES # (AUTO) 0.6 K/uL (0.8-1.0); MONOCYTES % (AUTO) 6.1 % (1.7-9.3); NEUTROPHILS % (AUTO) 76.4 % (42.2-75.2); PLATELET COUNT (AUTO) 241 K/uL (140-450); RED BLOOD CELL COUNT(AUTO) 4.44 MIL/uL (4.20-6.10); RED CELL DISTRIBUTION WIDTH 12.8 % (11.6-13.7); WHITE BLOOD COUNT (AUTO) 9.2 K/uL (4.8-10.8)
--- NOTE | 2021-09-26 23:37 | NUR ---
Patient Tranfers to radiology dept via wheelchair with technical support representative.
--- NOTE | 2021-09-26 23:39 | NUR ---
Patient returned to bed/
[2021-09-26 23:47] LABS: RBC,URINE 0-5 /HPF (0-5); WBC,URINE 0-5 /HPF (0-5)
[2021-09-26 23:49] LABS: ANION GAP 13.4 (8-16); CREATININE 0.7 mg/dL (0.6-1.3); POTASSIUM 3.4 mmol/L (3.5-5.1); TOTAL BILIRUBIN 1.4 mg/dL (0.0-1.0)
--- NOTE | 2021-09-27 00:35 | NUR ---
Patient appears to be resting comfortably in bed. Vital Signs within normal limits. Respirations even and unlabored.
[2021-09-27] MEDS ORDERED: CIPR500T4 PO (01:15)
[2021-09-27] MEDS ORDERED: METR-435 PO (01:15)
[2021-09-27] MEDS ORDERED: ACET-10509 PO (01:15)
--- NOTE | 2021-09-27 01:19 | NUR ---
Dr. Irwin at bedside to explain results and treatment plans.
[2021-09-27 01:22] VITALS: BP 125/67
--- NOTE | 2021-09-27 01:22 | NUR ---
Patient discharged with v/s stable. Written and verbal after care instructions given and explained. Patient alert, oriented and verbalized understanding of instructions. Ambulatory with steady gait. All questions addressed prior to discharge. ID band removed. Patient advised to follow up with PMD. Rx of Cipro, Tylenol and Medtronidazole given. Patient educated on indication of medication including possible reaction and side effects. Opportunity to ask questions provided and answered.
== END 2021-09-27 01:22 | disposition home or self-care (01) ==
LOC: MED 20:59
DX: K57.92 Diverticulitis of intestine, part unspecified, without perforation or abscess without bleeding (principal); R11.10 Vomiting, unspecified; Z79.899 Other long term (current) drug therapy; Z90.49 Acquired absence of other specified parts of digestive tract
CPT/HCPCS: 36415; 74176; 80053; 81001; 83690; 85025; 99284; Q0162

== ENCOUNTER 2021-12-06 23:41 | Emergency (ER) | payer MEDICAID ==
[~2021-12-06 23:41] MED LIST changes: +ACET-10509 PO; +METR-435 PO
--- NOTE | 2021-12-06 23:56 | NUR ---
Called first time -no show
--- NOTE | 2021-12-07 00:12 | NUR ---
called second time - no show
--- NOTE | 2021-12-07 00:14 | NUR ---
PATIENT LEFT WITHOUT BEING SEEN BY DR. Hernandez. NO FURTHER CARE PROVIDED FOR PATIENT.
== END 2021-12-06 23:56 | disposition left against medical advice (07) ==
LOC: MED 23:41
DX: Z53.21 Procedure and treatment not carried out due to patient leaving prior to being seen by health care provider (principal)

== ENCOUNTER 2022-06-17 03:07 | Emergency (ER) | payer MEDICAID ==
[~2022-06-17] VITALS: Ht 165.1 cm; Wt 81.6 kg
[2022-06-17 03:24] VITALS: BP 111/73
--- NOTE | 2022-06-17 03:32 | NUR ---
PT TAKEN TO BED 3
--- NOTE | 2022-06-17 03:36 | NUR ---
Patient being evaluated by physician Mary at bedside.
--- NOTE | 2022-06-17 03:43 | NUR ---
P/T A&O X4. C/O BLEED FROM COLOSTOMY. DENIES PAIN OR SOB.
--- NOTE | 2022-06-17 04:13 | NUR ---
Patient discharged with v/s stable. Written and verbal after care instructions given and explained. Patient verbalized understanding. Ambulatory with steady gait. All questions addressed prior to discharge. Advised to follow up with PMD.
== END 2022-06-17 03:45 | disposition home or self-care (01) ==
LOC: MED 03:07
DX: K94.03 Colostomy malfunction (principal); Z90.49 Acquired absence of other specified parts of digestive tract; Z98.890 Other specified postprocedural states; Z79.899 Other long term (current) drug therapy
CPT/HCPCS: 99281

== ENCOUNTER 2022-07-13 15:21 | Emergency (ER) | payer MEDICAID ==
[~2022-07-13] VITALS: Ht 165.1 cm; Wt 82.6 kg
[2022-07-13 15:28] VITALS: BP 115/89
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
[2022-07-13 18:13] LABS: BASOPHILS # (AUTO) 0.1 K/uL (0.00-0.22); BASOPHILS % (AUTO) 0.7 % (0.0-2.0); EOSINOPHILS # (AUTO) 0.1 K/uL (0-0.4); EOSINOPHILS % (AUTO) 0.6 % (0.0-4.0); HEMATOCRIT 46.1 % (36-52); HEMOGLOBIN 15.8 g/dL (12.0-18.0); LYMPHOCYTES # (AUTO) 2.2 K/uL (2.0-11.5); LYMPHOCYTES % (AUTO) 18.1 % (20.5-51.1); MEAN CORPUSCULAR HEMOGLOBIN 30 pg (27-31); MEAN CORPUSCULAR HGB CONC 34 g/dL (33-37); MEAN CORPUSCULAR VOLUME 88.5 fL (80-94); MONOCYTES # (AUTO) 0.8 K/uL (0.8-1.0); MONOCYTES % (AUTO) 6.6 % (1.7-9.3); NEUTROPHILS # (AUTO) 8.8 K/uL (1.8-7.7); PLATELET COUNT (AUTO) 284 K/uL (140-450); RED BLOOD CELL COUNT(AUTO) 5.21 MIL/uL (4.20-6.10); RED CELL DISTRIBUTION WIDTH 13.5 % (11.6-13.7); WHITE BLOOD COUNT (AUTO) 11.9 K/uL (4.8-10.8)
--- NOTE | 2022-07-13 18:17 | NUR ---
PT AMBULATED TO LOBBY
[2022-07-13 18:20] VITALS: BP 124/69
[2022-07-13 18:34] LABS: ALBUMIN 4.3 g/dL (3.4-5.0); ANION GAP 6.8 (8-16); CARBON DIOXIDE 32.3 mmol/L (21-32); CREATININE 0.9 mg/dL (0.6-1.3); POTASSIUM 4.1 mmol/L (3.5-5.1); TOTAL BILIRUBIN 0.9 mg/dL (0.0-1.0)
== END 2022-07-13 19:00 | disposition home or self-care (01) ==
LOC: MED 15:21
DX: R11.2 Nausea with vomiting, unspecified (principal)
CPT/HCPCS: 36415; 80053; 83690; 85025; 99283

== ENCOUNTER 2022-11-23 17:07 | Emergency (ER) | payer MEDICAID ==
[~2022-11-23] VITALS: Ht 165.1 cm; Wt 83.5 kg
[2022-11-23 17:14] VITALS: BP 124/68
--- NOTE | 2022-11-23 17:22 | NUR ---
PT AMBULATED TO ER BED 1
[2022-11-23] MEDS ORDERED: NACL 0.9% 1,000 ML IV ONE (18:15)
[2022-11-23] MEDS ORDERED: ONDANSETRON 4 MG/2 ML VIAL IVP ONE (18:15)
[2022-11-23 18:44] LABS: BASOPHILS % (AUTO) 0.1 % (0.0-2.0); EOSINOPHILS # (AUTO) 0.1 K/uL (0-0.4); EOSINOPHILS % (AUTO) 0.3 % (0.0-4.0); HEMATOCRIT 50.7 % (36-52); HEMOGLOBIN 17.1 g/dL (12.0-18.0); LYMPHOCYTES # (AUTO) 0.4 K/uL (2.0-11.5); LYMPHOCYTES % (AUTO) 2.3 % (20.5-51.1); MEAN CORPUSCULAR HEMOGLOBIN 30 pg (27-31); MEAN CORPUSCULAR HGB CONC 34 g/dL (33-37); MEAN CORPUSCULAR VOLUME 90.4 fL (80-94); MONOCYTES # (AUTO) 0.7 K/uL (0.8-1.0); MONOCYTES % (AUTO) 3.7 % (1.7-9.3); NEUTROPHILS # (AUTO) 16.9 K/uL (1.8-7.7); NEUTROPHILS % (AUTO) 93.6 % (42.2-75.2); PLATELET COUNT (AUTO) 302 K/uL (140-450); RED BLOOD CELL COUNT(AUTO) 5.61 MIL/uL (4.20-6.10); RED CELL DISTRIBUTION WIDTH 13.2 % (11.6-13.7); WHITE BLOOD COUNT (AUTO) 18.1 K/uL (4.8-10.8)
[2022-11-23 19:04] LABS: ALBUMIN 4.9 g/dL (3.4-5.0); ANION GAP 12.8 (8-16); CARBON DIOXIDE 29.9 mmol/L (21-32); CREATININE 1.3 mg/dL (0.6-1.3); POTASSIUM 4.7 mmol/L (3.5-5.1); TOTAL BILIRUBIN 1.6 mg/dL (0.0-1.0)
[2022-11-23] MEDS ORDERED: CIPR500T4 PO (20:36)
[2022-11-23] MEDS ORDERED: METR-520 PO (20:36)
[2022-11-23] MEDS ORDERED: ONDA-188 PO (20:36)
[2022-11-23 20:40] VITALS: BP 124/68
--- NOTE | 2022-11-23 20:40 | NUR ---
Patient discharged with v/s stable. Written and verbal after care instructions given and explained. Patient alert, oriented and verbalized understanding of instructions. Ambulatory with steady gait. All questions addressed prior to discharge. ID band removed. Patient advised to follow up with PMD. Rx of FLAGYL, CIPRO, ZOFRAN given. Patient educated on indication of medication including possible reaction and side effects. Opportunity to ask questions provided and answered.
== END 2022-11-23 20:40 | disposition home or self-care (01) ==
LOC: MED 17:07
DX: R10.13 Epigastric pain (principal); Z79.899 Other long term (current) drug therapy
CPT/HCPCS: 36415; 74176; 80053; 85025; 96361; 96374; 99285; J2405; J7030

== ENCOUNTER 2023-01-10 23:50 | Emergency (ER) | payer OTHER, MEDICAID ==
[~2023-01-10] VITALS: Ht 165.1 cm; Wt 86.2 kg
[~2023-01-10 23:50] MED LIST changes: +METR-520 PO; +ONDA-188 PO
[2023-01-11] VITALS: BP 119/55
--- NOTE | 2023-01-11 00:03 | NUR ---
TO LOOBY A/W BED AMBULATORY
--- NOTE | 2023-01-11 00:10 | NUR ---
SEEN AND EXAMINED BY BERHANE
[2023-01-11 00:15] VITALS: BP 119/55
== END 2023-01-11 00:15 | disposition home or self-care (01) ==
LOC: MED 23:50
DX: Z43.3 Encounter for attention to colostomy (principal); Z98.890 Other specified postprocedural states; Z79.899 Other long term (current) drug therapy; Z79.2 Long term (current) use of antibiotics; Z79.1 Long term (current) use of non-steroidal anti-inflammatories (NSAID)
CPT/HCPCS: 99281